=== PATIENT | male | born 1990 | race Hispanic/Latino ===

== ENCOUNTER 2023-05-24 18:45 | Emergency (ER) | payer BC ==
[2023-05-24 20:03] LABS: Bacteria/HPF None Seen HPF (None Seen); Bilirubin Negative (Negative); Blood, Urine Negative (Negative); CAUTI Indications for Culture Dysuria,urgency,freq; Clarity Clear (Clear); Glucose, Urine (Dipstick) Normal (Negative); Ketone, Urine Negative (Negative); Leukocyte Negative Leu/uL (Negative); Nitrite Negative (Negative); Protein, Urine (Dipstick) Negative (Neg-Trace); RBC/HPF None Seen HPF (0-3); Specific Gravity, Urine 1.021 (1.002-1.036); Squamous Epithelial 0-3 HPF (0-3); Urobilinogen Normal mg/dL (Less than 2); WBC/HPF 0-3 HPF (0-3)
[2023-05-24 20:06] LABS: Urine Culture Reflex No No
[2023-05-24] MEDS ORDERED: Ibuprofen 800 MG TAB ONE (20:15)
[2023-05-24] MEDS ORDERED: Lidocaine 1% PF 5 ML VIAL ONE ×2 (20:30→21:43)
[2023-05-24] MEDS ORDERED: cefTRIAXone (ROCEPHIN) 1 GM VIAL ONE ×2 (20:30→21:43)
[2023-05-25 00:53] LABS: Chlam.trachomatis by PCR,Urine Not Detected (NotDetected); GC N.gonorrhoeae PCR,UrineVOID Not Detected (NotDetected)
== END 2023-05-24 22:10 | disposition home or self-care (01) ==
LOC: ERS 18:45
DX: N45.1 Epididymitis (principal)
CPT/HCPCS: 76870; 87491; 87591; 87661; 93976; 96372; J0696

== ENCOUNTER 2024-08-18 19:14 | Emergency (ER) | payer BC, SELFPAY ==
[2024-08-18] MEDS ORDERED: Ketorolac Tromethamine 30 MG (1 mL) VIAL ONE (19:32)
[2024-08-18] MEDS ORDERED: Acetaminophen 325 MG TAB ONE (19:35)
[2024-08-18] MEDS ORDERED: Ibuprofen 200 MG TAB ONE (19:35)
[2024-08-18 21:19] LABS: Bacteria/HPF None Seen HPF (None Seen); Bilirubin Negative (Negative); Blood, Urine Negative (Negative); CAUTI Indications for Culture Pelvic or flank pain; Clarity Clear (Clear); Glucose, Urine (Dipstick) Normal (Negative); Ketone, Urine Negative (Negative); Leukocyte Negative Leu/uL (Negative); Nitrite Negative (Negative); Protein, Urine (Dipstick) 70 mg/dL (Neg-Trace); Specific Gravity, Urine 1.032 (1.002-1.036); Squamous Epithelial None Seen HPF (0-3); Urobilinogen 3 mg/dL (Less than 2)
[2024-08-18 21:21] LABS: RBC/HPF 0-3 HPF (0-3); Sperm/HPF Rare HPF (None Seen); Urine Culture Reflex No No; WBC/HPF 0-3 HPF (0-3)
== END 2024-08-18 21:43 | disposition home or self-care (01) ==
LOC: ERS 19:14
DX: N43.3 Hydrocele, unspecified (principal)
CPT/HCPCS: 76870; 81001; 93976; J1885